=== PATIENT | male | born 1990 | race Caucasian/White ===

== ENCOUNTER 2016-06-28 19:08 | Emergency (ER) | payer SELFPAY ==
[~2016-06-28] VITALS: Ht 182.9 cm; Wt 75.0 kg
[2016-06-28 19:10] VITALS: BP 141/90; PULSE 96; RESP 15; TEMP 98.1; O2SAT 100
[2016-06-28] MEDS ORDERED: AZITHROMYCIN PWD FOR SUSP 1 GM PACKET PO ONE (20:00)
[2016-06-28] MEDS ORDERED: LIDOCAINE HCL 1% PF 30 ML VIAL XX ONE (20:00)
--- NOTE | 2016-06-28 20:00 | PD ---
HPI Chief Complaint: Eye Problems/Injury Time Seen by Provider: 19:30 Travel History International Travel<30 days: No Contact w/Intl Traveler<30days: No Traveled to known affect area: No History of Present Illness HPI Patient comes in after being evaluated at urgent care for possible hyperacute bacterial conjunctivitis. Patient states over the past week he's been having issues with allergies when he awoke today he had some discharge from his right eye. Patient states approximately 2 hours prior to going to the urgent care the drainage became heavier. Patient states that he has been sexually active with various partners but denies any known STD transmissions or partners reporting having any symptoms of STDs. Patient denies any penile discharge, dysuria, or testicular pain. Patient states the discharge is causing some blurriness in his right eye that clears after wiping with the discharge. Denies any pain in his eye with this. PFSH Past Medical History Medical History: Denies Significant Hx Social History Alcohol Use: Yes Tobacco Use: No Substance Use: No Allergies-Medications (Allergen,Severity, Reaction): Coded Allergies: No Known Allergies (Unverified , 06/28/16) Reported Meds & Prescriptions Reported Meds & Active Scripts Active Ciprofloxacin Opth Drops (Ciprofloxacin HCl) 0.3% Soln 2 Drop RIGHT EYE Q2H while awake x 5 days. Review of Systems Except as stated in HPI: all other systems reviewed are Neg Physical Exam Narrative GENERAL: Well-developed, well nourished, in no acute distress, and non-ill appearing. SKIN: Warm and dry. HEAD: Atraumatic. Normocephalic. EYES: Pupils equal and round. EOMI. No scleral icterus. Injection with purulent drainage right eye. ENT: No nasal bleeding or discharge. Mucous membranes pink and moist. NECK: Trachea midline. Supple. No nuclear rigidity. RESPIRATORY: No accessory muscle use. No respiratory distress. MUSCULOSKELETAL: No obvious deformities. No clubbing. No cyanosis. No edema. Full range of motion. NEUROLOGICAL: Awake and alert. No obvious cranial nerve deficits. Motor grossly within normal limits. Normal speech. PSYCHIATRIC: Appropriate mood and affect; insight and judgment normal. Data Data Last Documented VS Vital Signs Date Time Temp Pulse Resp B/P Pulse Ox O2 Delivery O2 Flow Rate FiO2 06/28/16 19:10 98.1 96 15 141/90 100 Room Air Orders Ceftriaxone Inj (Rocephin Inj) (06/28/16 20:00) Lidocaine Pf 1% Inj (Xylocaine-Mpf 1% In (06/28/16 20:00) Azithromycin Powd Pack (Zithromax Powd P (06/28/16 20:00) Mandatory Outpatient Referral (06/28/16 20:01) [facility] Medical Decision Making Medical Screen Exam Complete: Yes Emergency Medical Condition: Yes Differential Diagnosis Bacterial conjunctivitis, viral conjunctivitis, allergic conjunctivitis, other Narrative Course Patient with conjunctivitis. No evidence of foreign body by history or exam. No history to suspect corneal ulceration as well. There is no evidence of iritis, glaucoma, preseptal cellulitis, periorbital or orbital cellulitis. Will place patient on ophthalmologic antibiotics for conjunctivitis. This was discussed with the patient. The patient was instructed to follow up with Dr. Cash tomorrow or return here if worsened, increased pain, decreased vision, swelling around the eye or as needed. Patient was instructed to notify his sexual partners that they could be tested for possible gonorrhea. The patient agreed with plan. Patient in no obvious distress upon re-evaluation. Patient was asked if they wanted to speak to my attending, which the patient did not wish to do at this time. Any questions/concerns in reference to patient diagnosis/condition discussed and clarified prior to patient's discharge. Reinforced sheer importance of close follow up with patient's primary physician or primary care clinic. Instructed patient to return to ED immediately, if symptoms return/ worsen. Pt showed understanding of above instructions. Further instructions and recommendations were detailed in discharge paperwork. Pt ambulated without difficulty out of ED at discharge. Physician Communication Physician Communication 1950 I discussed patient with Dr. Cash, loan analyst application packaging specialist, who recommends giving the patient shot of Rocephin, started patient on Cipro eyedrops, and call her office tomorrow for follow-up. Diagnosis Primary Impression: Conjunctivitis Qualified Code: H10.9 - Conjunctivitis of right eye, unspecified conjunctivitis type Referrals: Genesis Cash MD Patient Instructions: Conjunctivitis (ED), General Instructions, Gonorrhea (ED) Additional Instructions: Follow-up with Dr. Cash tomorrow call her office first thing in the morning. Take all medication as prescribed. Wash your eye using baby shampoo to 3 times daily. Wash hands frequently to prevent spreading infection. Wash hands anytime you touch your right eye. To prevent spreading infection Return to the emergency department if symptoms get worse. Med/Other Pt SpecificInfo: Prescription(s) given Scripts Ciprofloxacin Opth Drops 0.3% Soln2 Drop RIGHT EYE Q2H #1 BOTTLE Ref 0 while awake x 5 days. Prov:Marysol Arreola DO 06/28/16 Disposition: 01 DISCHARGE HOME Condition: Stable Ghassan Jackson Jun 28, 2016 20:00
[2016-06-28] MEDS ORDERED: CIPR0.3S2 RIGHT EYE (20:01)
== END 2016-06-28 20:18 | disposition home or self-care (01) ==
LOC: NEPB 19:08
DX: H10.9 Unspecified conjunctivitis (principal)
CPT/HCPCS: 96372; 99284; J0696